=== PATIENT | male | born 1960 | race Caucasian/White ===

== ENCOUNTER 2019-01-20 09:35 | Inpatient (IN) | payer OTHER ==
[~2019-01-20 09:35] MED LIST: Acetaminophen 325 MG Tab PO SCH; EPINEPHrine 1 MG/ML SDV ONE; Lactated Ringers 1,000 ML IV SCH; Lidocaine 1%/Sod Bicarbonate in NS 8.4% 1 ML Syringe IDERM PRN; Pregabalin 25 MG Cap PO SCH; Ropivacaine 0.5% 5 MG/ML 30 ML SDV ONE; Sodium Chloride 0.9% 10 ML Syringe FLUSH PRN; oxyCODONE ER 10 MG TAB.ER PO SCH
--- NOTE | 2019-01-20 10:50 | PCM.PREANE ---
Preanesthetic Assessment - Anesthesia/Transfusion/Family Hx Anesthesia History: Prior Anesthesia Without Reaction Family History of Anesthesia Reaction: No Transfusion History: No Prior Transfusion(s) - Review of Systems General: No Symptoms Pulmonary: No Symptoms Cardiovascular: No Symptoms Gastrointestinal: No Symptoms Neurological: Numbness (somtimes in arms) Other: Reports: None - Physical Assessment NPO Status Date: 01/19/19 NPO Status Time: 19:00 Pulse: 88 O2 Sat by Pulse Oximetry: 96 Respiratory Rate: 16 Blood Pressure: 141/91 Temperature: 36.4 C Vital Signs: Last Vital Signs Temp 36.4 C 01/20/19 09:45 Pulse 88 01/20/19 09:45 Resp 16 01/20/19 09:45 BP 141/91 H 01/20/19 09:45 Pulse Ox 96 01/20/19 09:45 Height: 1.78 m Weight: 94.801 kg ASA Class: 2 Mental Status: Alert & Oriented x3 Airway Class: Mallampati = 1 Dentition: Reports: [place](s), [place] Thyro-Mental Finger Breadths: 3 Mouth Opening Finger Breadths: 3 ROM/Head Extension: Full Lungs: Clear to Auscultation, Normal Respiratory Effort Cardiovascular: Regular Rate, Regular Rhythm - Lab Values: on chart - Imaging/EKG Impressions: on chart NSR - Allergies Allergies/Adverse Reactions: Allergies Allergy/AdvReac Type Severity Reaction Status Date / Time No Known Allergies Allergy Verified 01/19/19 10:54 - Blood Blood Available: No Product(s) Available: None - Acknowledgements Anesthesia Type Planned: Spinal, Regional Block (Femoral block at adductor canal for post-op pain control) Pt an Appropriate Candidate for the Planned Anesthesia: Yes Alternatives and Risks of Anesthesia Discussed w Pt/Guardian: Yes Pt/Guardian Understands and Agrees with Anesthesia Plan: Yes PreAnesthesia Questionnaire HEENT History: Reports: Hard of Hearing, Other (See Below) Other HEENT History: hearing loss, tinnitis Cardiovascular History: Reports: Hypertension Respiratory History: Reports: None Gastrointestinal History: Reports: GERD Genitourinary History: Reports: BPH, Other (See Below) Other Genitourinary History: erectile dysfunction [employer] History: Reports: None Musculoskeletal History: Reports: Back Pain, Chronic, Osteoarthritis Neurological History: Reports: Other (See Below) Other Neuro History: essential tremor, cerviclagia Psychiatric History: Reports: None Endocrine/Metabolic History: Reports: None Hematologic History: Reports: None Immunologic History: Reports: None Oncologic (Cancer) History: Reports: None Dermatologic History: Reports: None - Past Surgical History Cardiovascular Surgical History: Reports: None Respiratory Surgical History: Reports: None GI Surgical History: Reports: Colonoscopy Female Surgical History: Reports: None Male Surgical History: Reports: None Endocrine Surgical History: Reports: None Neurological Surgical History: Reports: None Musculoskeletal Surgical History: Reports: Arthroscopic Knee, Knee Replacement, Other (See Below) Other Musculoskeletal Surgeries/Procedures:: left total knee, right ankle fusion , right wrist surgery, right knee arthroscopy Dermatological Surgical History: Reports: None - SUBSTANCE USE Smoking Status *Q: Never Smoker Tobacco Use Within Last Twelve Months: Snuff/Dip Second Hand Smoke Exposure: No Days Per Week of Alcohol Use: 3 Number of Drinks Per Day: 1 Total Drinks Per Week: 3 Recreational Drug Use History: No - HOME MEDS Home Medications: Home Meds Baclofen 10 mg PO ASDIRECTED PRN 01/20/19 [History] Chlorthalidone 25 mg PO DAILY 01/20/19 [History] atorvaSTATin [Lipitor] 10 mg PO DAILY 01/20/19 [History] - CURRENT (IN HOUSE) MEDS Current Meds: Current Medications Acetaminophen (Tylenol) 975 mg PO ONETIME MARCUS Stop: 01/20/19 14:00 Last Admin: 01/20/19 09:54 Dose: 975 mg Lactated Ringer's (Ringers, Lactated) 1,000 mls @ 125 mls/hr IV ASDIRECTED MARCUS Stop: 01/20/19 23:00 Last Admin: 01/20/19 10:05 Dose: 125 mls/hr Lidocaine/Sodium Bicarbonate (Buffered Lidocaine 1% In Ns 8.4%) 0.25 ml IDERM ONETIME PRN PRN Reason: Prior to IV Start Stop: 01/20/19 18:00 Last Admin: 01/20/19 10:05 Dose: 0.25 ml Oxycodone HCl (Oxycontin) 10 mg PO ONETIME MARCUS Stop: 01/20/19 14:00 Last Admin: 01/20/19 09:54 Dose: 10 mg Pregabalin (Lyrica) 50 mg PO ONETIME MARCUS Stop: 01/20/19 14:00 Last Admin: 01/20/19 09:54 Dose: 50 mg Sodium Chloride (Saline Flush) 10 ml FLUSH ASDIRECTED PRN PRN Reason: Keep Vein Open Stop: 01/20/19 18:00 Discontinued Medications Morphine Sulfate 8 mg/Epinephrine HCl 0.3 mg/Cefuroxime Sodium 750 mg/Ketorolac Tromethamine 30 mg/Sodium Chloride 27.9 ml 0 mg .XX ONETIME ONE Stop: 01/20/19 09:01 Epinephrine HCl (Adrenalin) Confirm Administered Dose 1 mg .ROUTE .STK-MED ONE Stop: 01/20/19 08:58 Ropivacaine (Naropin 0.5%) Confirm Administered Dose 30 ml .ROUTE .STK-MED ONE Stop: 01/20/19 08:58
[2019-01-20] MEDS ORDERED: Midazolam 1 MG/ML 2 ML SDV ONE (12:03)
[2019-01-20] MEDS ORDERED: Bupivacaine 0.75% 30 ML SDV ONE (12:04)
[2019-01-20] MEDS ORDERED: Ondansetron 4 MG/2 ML SDV ONE (12:31)
[2019-01-20] MEDS ORDERED: Naloxone 0.4 MG/ML SDV IVPUSH PRN (12:33)
[2019-01-20] MEDS ORDERED: Cyclobenzaprine 10 MG Tab PO PRN (12:33)
[2019-01-20] MEDS ORDERED: Ondansetron 4 MG/2 ML SDV IVPUSH PRN ×2 (12:33→14:39)
[2019-01-20] MEDS ORDERED: Magnesium Hydroxide 400 MG/5 ML Susp 30 ML Cup PO PRN (12:33)
[2019-01-20] MEDS ORDERED: Sennosides 8.6 MG Tab PO PRN (12:33)
[2019-01-20] MEDS ORDERED: Morphine 2 MG/ML Syringe IVPUSH PRN (12:33)
[2019-01-20] MEDS ORDERED: Bisacodyl 5 MG Tab PO PRN (12:33)
[2019-01-20] MEDS ORDERED: Propofol 200 MG/20 ML SDV ONE (12:35)
[2019-01-20] MEDS ORDERED: Lidocaine 1% PF 2 ML SDV ONE (12:37)
[2019-01-20] MEDS ORDERED: ceFAZolin 1 GM Vial ONE (12:52)
[2019-01-20] MEDS ORDERED: Lactated Ringers 1,000 ML ONE (13:07)
[2019-01-20] MEDS: Bupivacaine 0.25% 30 ML SDV ONE ×2 (13:08→13:31)
[2019-01-20] MEDS: ceFAZolin 1 GM Vial ONE ×2 (13:08→13:23)
[2019-01-20] MEDS: Iodine/Sodium Iodide 2% Tincture 30 ML Bottle ONE ×2 (13:09→13:21)
[2019-01-20] MEDS: Morphine 8 MG, EPINEPHrine 0.3 MG, Cefuroxime 750 MG, Ketorolac 30 MG, Sodium Chloride ... ONE ×10 (13:10→13:30)
[2019-01-20] MEDS: Vancomycin 1 GM SDV ONE ×2 (13:11→13:33)
[2019-01-20] MEDS ORDERED: ePHEDrine/Normal Saline 25 MG/5 ML Syringe ONE (13:31)
--- NOTE | 2019-01-20 14:33 | PCM.SN ---
- Free Text/Narrative Note: Right selective femoral nerve block at the adductor canal for post-procedure pain control Time Out: 1409 Start: 141 End: 1422 Chart reviewed. Consent signed. Questions answered. Appropriate monitors applied. Time out performed. Right mid-shaft femur evaluated with ultrasound. Scanning medially femur, I was able to identify the femoral artery in the adductor canal. The saphenous nerve was lateral to the artery. The skin was prepped lateral to the ultrasound probe with chlorahexadine. The 21ga 4 insulated block needle was inserted under direct ultrasound guidance into the adductor canal. 25mL of 0.5% ropivacaine with 1:200,000 epinephrine was injected cirmcumferentially about the nerve with intermittent negative aspiration every 5mL. Patient tolerated the procedure well. See pictures on progress note and vital signs on nurses notes. Block completed postoperatively. Rich Conklin CRNA
--- NOTE | 2019-01-20 14:38 | PCM.POSTAN ---
POST ANESTHESIA ASSESSMENT - MENTAL STATUS Mental Status: Alert - VITAL SIGNS Pulse Rate: 63 SaO2: 97 Resp Rate: 16 Blood Pressure: 106/81 Temperature: 36.3 C - RESPIRATORY Respiratory Status: Respiratory Rate WNL, Airway Patent, O2 Saturation Stable - CARDIOVASCULAR CV Status: Pulse Rate WNL, Blood Pressure Stable - GASTROINTESTINAL GI Status: No Symptoms - POST OP HYDRATION Hydration Status: Adequate & Stable
[2019-01-20] MEDS ORDERED: fentaNYL 100 MCG/2 ML SDV IVPUSH PRN (14:39)
--- NOTE | 2019-01-20 14:52 | CR ---
Right knee: AP and lateral views of the right knee were obtained. Comparison: No previous knee exam. Knee prosthesis is seen. Components are aligned. Underlying bony structures are intact. Vascular calcification is seen. Soft tissue air is noted from the surgical procedure. Impression: 1. Satisfactory postoperative radiographic appearance of recently placed right knee prosthesis. 2. Incidental vascular calcification. Diagnostic code #2
[2019-01-20] MEDS: Ketorolac 15 MG/ML SDV IVPUSH PRN ×2 (17:23→23:48)
[2019-01-20] MEDS: Acetaminophen/oxyCODONE 325-5 MG Tab PO PRN ×3 (17:23→22:04)
[2019-01-20] MEDS: ceFAZolin 2 GM in Premix Bag 1 BAG IV SCH (18:09)
--- NOTE | 2019-01-20 19:17 | PCM.CONSN ---
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 S/P Left knee arthroplasty, POD 0. The Hospitalist service has been asked to monitor his medications. Functional Status: Reports: Pain Controlled, Tolerating Diet, Urinating - Review of Systems General: Reports: No Symptoms HEENT: Reports: No Symptoms Pulmonary: Reports: No Symptoms Cardiovascular: Reports: No Symptoms Gastrointestinal: Reports: No Symptoms Genitourinary: Reports: No Symptoms Musculoskeletal: Reports: No Symptoms Skin: Reports: No Symptoms Neurological: Reports: No Symptoms Psychiatric: Reports: No Symptoms - Patient Data Vitals - Most Recent: Last Vital Signs Temp 35.8 C 01/20/19 15:10 Pulse 68 01/20/19 18:02 Resp 12 01/20/19 14:45 BP 126/82 01/20/19 18:02 Pulse Ox 100 01/20/19 18:02 Weight - Most Recent: 94.801 kg I&O - Last 24 Hours: Intake & Output 01/20/19 01/20/19 01/20/19 06:59 14:59 22:59 Intake Total 220 300 Balance 220 300 Lab Results Last 24 Hours: Laboratory Results - last 24 hr 01/20/19 Range/Units 10:06 APTT 29 (24-31) SECONDS Med Orders - Current: Current Medications Aspirin (Ecotrin) 325 mg PO BID MARCUS Bisacodyl (Dulcolax) 5 mg PO DAILY PRN PRN Reason: Constipation Cholecalciferol (Vitamin D3) 5,000 unit PO DAILY MARCUS Cyclobenzaprine HCl (Flexeril) 10 mg PO TID PRN PRN Reason: Spasms Docusate Sodium (Colace) 100 mg PO BID MARCUS Finasteride (Proscar) 5 mg PO DAILY MARCUS Flunisolide (Nasalide Nasal [place]) 0 ml AYAZ BID MARCUS Gabapentin (Neurontin) 1,200 mg PO DAILY MARCUS Cefazolin Sodium/Dextrose 2 gm (/ Premix) 50 mls @ 100 mls/hr IV Q8H MARCUS Stop: 01/21/19 11:29 Last Admin: 01/20/19 18:09 Dose: 100 mls/hr Ketorolac Tromethamine (Toradol) 15 mg IVPUSH Q6H PRN PRN Reason: Pain Last Admin: 01/20/19 17:23 Dose: 15 mg Loratadine (Claritin) 10 mg PO DAILY [facility] Magnesium Hydroxide (Milk Of Magnesia) 30 ml PO BID PRN PRN Reason: Constipation Morphine Sulfate (Morphine) 2 mg IVPUSH Q2H PRN PRN Reason: Breakthrough Pain Naloxone HCl (Narcan) 0.1 mg IVPUSH Q5M PRN PRN Reason: Oversedation Non-Formulary Medication (Chlorthalidone) 25 mg PO DAILY [facility] Non-Formulary Medication (Magnesium [Magnesium]) 250 mg PO DAILY [facility] Ondansetron HCl (Zofran) 4 mg IVPUSH Q6H PRN PRN Reason: Nausea/Vomiting Oxycodone/Acetaminophen (Percocet 325-5 Mg) 1 - 2 tab PO Q4H PRN PRN Reason: Pain Last Admin: 01/20/19 18:18 Dose: 1 tab Pantoprazole Sodium (Protonix) 40 mg PO BID [facility] Propranolol HCl (Inderal La) 60 mg PO DAILY [facility] Senna (Senna) 8.6 mg PO BID PRN PRN Reason: Constipation Simvastatin (Zocor) 10 mg PO DAILY [facility] Tamsulosin HCl (Flomax) 0.4 mg PO DAILY [facility] Discontinued Medications Acetaminophen (Tylenol) 975 mg PO ONETIME MARCUS Stop: 01/20/19 14:00 Last Admin: 01/20/19 09:54 Dose: 975 mg Bupivacaine HCl (Marcaine 0.25%) Confirm Administered Dose 30 ml .ROUTE .STK- MED ONE Stop: 01/20/19 11:28 Last Admin: 01/20/19 13:31 Dose: 30 ml Bupivacaine HCl (Sensorcaine-Mpf 0.75%) Confirm Administered Dose 30 ml .ROUTE .STK-MED ONE Stop: 01/20/19 12:05 Cefazolin Sodium (Ancef) Confirm Administered Dose 2 gm .ROUTE .STK-MED ONE Stop: 01/20/19 11:28 Last Admin: 01/20/19 13:23 Dose: 2 gm Cefazolin Sodium (Ancef) Confirm Administered Dose 2 gm .ROUTE .STK-MED ONE Stop: 01/20/19 12:53 Morphine Sulfate 8 mg/Epinephrine HCl 0.3 mg/Cefuroxime Sodium 750 mg/Ketorolac Tromethamine 30 mg/Sodium Chloride 27.9 ml 0 mg .XX ONETIME ONE Stop: 01/20/19 09:01 Last Admin: 01/20/19 13:30 Dose: 788.3 mg Ephedrine Sulfate (Ephedrine In Ns) Confirm Administered Dose 50 mg .ROUTE .STK- MED ONE Stop: 01/20/19 13:32 Epinephrine HCl (Adrenalin) Confirm Administered Dose 1 mg .ROUTE .STK-MED ONE Stop: 01/20/19 08:58 Famotidine (Pepcid) 20 mg PO Q12H MARCUS Fentanyl (Sublimaze) 50 mcg IVPUSH Q5M PRN PRN Reason: Pain Stop: 01/20/19 18:00 Lactated Ringer's (Ringers, Lactated) 1,000 mls @ 125 mls/hr IV ASDIRECTED MARCUS Stop: 01/20/19 23:00 Last Admin: 01/20/19 10:05 Dose: 125 mls/hr Lidocaine HCl (Xylocaine-Mpf 1%) Confirm Administered Dose 5 mls @ as directed .ROUTE .STK-MED ONE Stop: 01/20/19 12:05 Lidocaine HCl (Xylocaine-Mpf 1%) Confirm Administered Dose 5 mls @ as directed .ROUTE .STK-MED ONE Stop: 01/20/19 12:05 Lactated Ringer's (Ringers, Lactated) Confirm Administered Dose 1,000 mls @ as directed .ROUTE .STK-MED ONE Stop: 01/20/19 13:08 Iodine (Iodine 2% Mild Tincture) Confirm Administered Dose 30 ml .ROUTE .STK- MED ONE Stop: 01/20/19 11:28 Last Admin: 01/20/19 13:21 Dose: 18 ml Lidocaine HCl (Xylocaine-Mpf 1%) Confirm Administered Dose 6 ml .ROUTE .STK-MED ONE Stop: 01/20/19 12:38 Lidocaine/Sodium Bicarbonate (Buffered Lidocaine 1% In Ns 8.4%) 0.25 ml IDERM ONETIME PRN PRN Reason: Prior to IV Start Stop: 01/20/19 18:00 Last Admin: 01/20/19 10:05 Dose: 0.25 ml Midazolam HCl (Versed 1 Mg/Ml) Confirm Administered Dose 2 mg .ROUTE .STK-MED ONE Stop: 01/20/19 12:04 Ondansetron HCl (Zofran) Confirm Administered Dose 4 mg .ROUTE .STK-MED ONE Stop: 01/20/19 12:32 Ondansetron HCl (Zofran) 4 mg IVPUSH ONETIME PRN PRN Reason: Nausea/Vomiting Stop: 01/20/19 18:00 Oxycodone HCl (Oxycontin) 10 mg PO ONETIME MARCUS Stop: 01/20/19 14:00 Last Admin: 01/20/19 09:54 Dose: 10 mg Pregabalin (Lyrica) 50 mg PO ONETIME MARCUS Stop: 01/20/19 14:00 Last Admin: 01/20/19 09:54 Dose: 50 mg Propofol (Diprivan 20 Ml) Confirm Administered Dose 400 mg .ROUTE .STK-MED ONE Stop: 01/20/19 12:36 Ropivacaine (Naropin 0.5%) Confirm Administered Dose 30 ml .ROUTE .STK-MED ONE Stop: 01/20/19 08:58 Sodium Chloride (Saline Flush) 10 ml FLUSH ASDIRECTED PRN PRN Reason: Keep Vein Open Stop: 01/20/19 18:00 Tranexamic Acid (Cyklokapron) Confirm Administered Dose 1,000 mg .ROUTE .STK- MED ONE Stop: 01/20/19 11:27 Last Admin: 01/20/19 13:37 Dose: 1,000 mg Vancomycin HCl (Vancomycin) Confirm Administered Dose 1 gm .ROUTE .STK-MED ONE Stop: 01/20/19 11:27 Last Admin: 01/20/19 13:33 Dose: 1 gm - Exam Quality Assessment: Urine Catheter, DVT Prophylaxis General: Alert, Oriented, Cooperative, No Acute Distress HEENT: Pupils Equal, Pupils Reactive, EOMI Neck: Trachea Midline, No JVD Lungs: Normal Respiratory Effort Cardiovascular: Regular Rate, Regular Rhythm GI/Abdominal Exam: Normal Bowel Sounds, Soft, Non-Tender, No Organomegaly, No Distention (Male) Exam: Deferred Back Exam: Normal Inspection Extremities: Normal Inspection, Non-Tender, Normal Capillary Refill Skin: Warm Neurological: No New Focal Deficit Psy/Mental Status: Alert, Normal Affect, Normal Mood Consult PN Assessment/Plan POD#: 0 Procedures: Procedures MR-STAPH DNA AMP PROBE (12/25/18) (1) Hypertension SNOMED Code(s): 63009043 Code(s): I10 - ESSENTIAL (PRIMARY) HYPERTENSION Current Visit: Yes (2) BPH (benign prostatic hyperplasia) SNOMED Code(s): 553483179 Code(s): N40.0 - BENIGN PROSTATIC HYPERPLASIA WITHOUT LOWER URINRY TRACT SYMP Current Visit: Yes (3) GERD (gastroesophageal reflux disease) SNOMED Code(s): 410865992 Code(s): K21.9 - GASTRO-ESOPHAGEAL REFLUX DISEASE WITHOUT ESOPHAGITIS Current Visit: Yes (4) Osteoarthritis SNOMED Code(s): 916890380 Code(s): M19.90 - UNSPECIFIED OSTEOARTHRITIS, UNSPECIFIED SITE Current Visit: Yes Problem List Initiated/Reviewed/Updated: Yes Plan: Impression/Plan: History of OA S/P right total knee arthroplasty History of Left totall knee replacement Consult PT/OT Pain mgt DVT prophylaxis Home meds Daily Labs
[2019-01-20] MEDS ORDERED: Famotidine 20 MG Tab PO SCH (21:00)
[2019-01-20] MEDS: Docusate Sodium 100 MG Cap PO SCH (21:13)
[2019-01-20] MEDS: Pantoprazole 40 MG Tab.CR PO SCH (21:14)
[2019-01-21] MEDS: ceFAZolin 2 GM in Premix Bag 1 BAG IV SCH ×2 (04:00→10:43)
[2019-01-21] MEDS: Acetaminophen/oxyCODONE 325-5 MG Tab PO PRN ×3 (04:08→14:39)
--- NOTE | 2019-01-21 07:06 | PCM.CONSN ---
- General Info Date of Service: 01/21/19 Subjective Update: In to see Isma. He reports his pain is quite severe however he has just finished working with OT and reportedly did well. No other nursing or patient concerns. Functional Status: Reports: Pain Controlled, Tolerating Diet, Ambulating, Urinating, Incentive Spirometry. Denies: New Symptoms - Review of Systems General: Reports: No Symptoms. Denies: Fever, Weakness, Malaise, Chills HEENT: Reports: No Symptoms. Denies: Headaches, Sore Throat Pulmonary: Reports: No Symptoms. Denies: Shortness of Breath, Pleuritic Chest Pain, Cough, Sputum, Wheezing Cardiovascular: Reports: No Symptoms. Denies: Chest Pain, Palpitations, Dyspnea on Exertion, Edema Gastrointestinal: Reports: No Symptoms. Denies: Abdominal Pain, Constipation, Diarrhea, Nausea, Vomiting Genitourinary: Reports: No Symptoms. Denies: Pain Musculoskeletal: Reports: Leg Pain Skin: Reports: No Symptoms Neurological: Reports: No Symptoms. Denies: Confusion Psychiatric: Reports: No Symptoms - Patient Data Vitals - Most Recent: Last Vital Signs Temp 99.3 F 01/21/19 03:58 Pulse 88 01/21/19 03:58 Resp 17 01/21/19 03:58 BP 122/74 01/21/19 03:58 Pulse Ox 97 01/21/19 03:58 Weight - Most Recent: 217 lb 4.8 oz I&O - Last 24 Hours: Intake & Output 01/20/19 01/21/19 01/21/19 22:59 06:59 14:59 Intake Total 300 1400 Output Total 550 Balance 300 850 Lab Results Last 24 Hours: Laboratory Results - last 24 hr 01/20/19 01/21/19 01/21/19 Range/Units 10:06 04:18 04:18 WBC 9.35 H (4.23-9.07) K/mm3 RBC 4.18 L (4.63-6.08) M/mm3 Hgb 13.7 (13.7-17.5) gm/L Hct 39.2 L (40.1-51.0) % MCV 93.8 H (79.0-92.2) fl MCH 32.8 H (25.7-32.2) pg MCHC 34.9 (32.2-35.5) g/dl RDW Std Deviation 43.6 (35.1-43.9) fL Plt Count 274 (163-337) K/mm3 MPV 8.7 L (9.4-12.3) fl APTT 29 (24-31) SECONDS Sodium 133 L (136-145) mEq/L Potassium 2.7 L (3.5-5.1) mEq/L Chloride 96 L (98-107) mEq/L Carbon Dioxide 29 (21-32) mEq/L Anion Gap 10.7 (5-15) BUN 15 (7-18) mg/dL Creatinine 0.8 (0.7-1.3) mg/dL Est Cr Clr Drug Dosing 101.39 mL/min Estimated GFR (MDRD) > 60 (>60) mL/min BUN/Creatinine Ratio 18.8 H (14-18) Glucose 94 (74-106) mg/dL Calcium 8.8 (8.5-10.1) mg/dL Magnesium (1.8-2.4) mg/dl Total Bilirubin 0.8 (0.2-1.0) mg/dL AST 16 (15-37) U/L ALT 20 (16-63) U/L Alkaline Phosphatase 65 (46-116) U/L C-Reactive Protein (<1.0) mg/dL Total Protein 6.3 L (6.4-8.2) g/dl Albumin 3.2 L (3.4-5.0) g/dl Globulin 3.1 gm/dL Albumin/Globulin Ratio 1.0 (1-2) 01/21/19 Range/Units 04:18 WBC (4.23-9.07) K/mm3 RBC (4.63-6.08) M/mm3 Hgb (13.7-17.5) gm/L Hct (40.1-51.0) % MCV (79.0-92.2) fl MCH (25.7-32.2) pg MCHC (32.2-35.5) g/dl RDW Std Deviation (35.1-43.9) fL Plt Count (163-337) K/mm3 MPV (9.4-12.3) fl APTT (24-31) SECONDS Sodium (136-145) mEq/L Potassium (3.5-5.1) mEq/L Chloride (98-107) mEq/L Carbon Dioxide (21-32) mEq/L Anion Gap (5-15) BUN (7-18) mg/dL Creatinine (0.7-1.3) mg/dL Est Cr Clr Drug Dosing mL/min Estimated GFR (MDRD) (>60) mL/min BUN/Creatinine Ratio (14-18) Glucose (74-106) mg/dL Calcium (8.5-10.1) mg/dL Magnesium 1.5 L (1.8-2.4) mg/dl Total Bilirubin (0.2-1.0) mg/dL AST (15-37) U/L ALT (16-63) U/L Alkaline Phosphatase (46-116) U/L C-Reactive Protein 3.7 H* (<1.0) mg/dL Total Protein (6.4-8.2) g/dl Albumin (3.4-5.0) g/dl Globulin gm/dL Albumin/Globulin Ratio (1-2) Med Orders - Current: Current Medications Aspirin (Ecotrin) 325 mg PO BID [facility] Bisacodyl (Dulcolax) 5 mg PO DAILY PRN PRN Reason: Constipation Cholecalciferol (Vitamin D3) 5,000 unit PO DAILY [facility] Cyclobenzaprine HCl (Flexeril) 10 mg PO TID PRN PRN Reason: Spasms Docusate Sodium (Colace) 100 mg PO BID [facility] Last Admin: 01/20/19 21:13 Dose: 100 mg Finasteride (Proscar) 5 mg PO DAILY [facility] Flunisolide (Nasalide Nasal [place]) 0 ml AYAZ BID [facility] Last Admin: 01/20/19 21:12 Dose: 1 spr Gabapentin (Neurontin) 1,200 mg PO DAILY [facility] Cefazolin Sodium/Dextrose 2 gm (/ Premix) 50 mls @ 100 mls/hr IV Q8H [facility] Stop: 01/21/19 11:29 Last Admin: 01/21/19 04:00 Dose: 100 mls/hr Ketorolac Tromethamine (Toradol) 15 mg IVPUSH Q6H PRN PRN Reason: Pain Last Admin: 01/20/19 23:48 Dose: 15 mg Loratadine (Claritin) 10 mg PO DAILY [facility] Magnesium Hydroxide (Milk Of Magnesia) 30 ml PO BID PRN PRN Reason: Constipation Morphine Sulfate (Morphine) 2 mg IVPUSH Q2H PRN PRN Reason: Breakthrough Pain Naloxone HCl (Narcan) 0.1 mg IVPUSH Q5M PRN PRN Reason: Oversedation Non-Formulary Medication (Chlorthalidone) 25 mg PO DAILY [facility] Non-Formulary Medication (Magnesium [Magnesium]) 250 mg PO DAILY [facility] Ondansetron HCl (Zofran) 4 mg IVPUSH Q6H PRN PRN Reason: Nausea/Vomiting Oxycodone/Acetaminophen (Percocet 325-5 Mg) 1 - 2 tab PO Q4H PRN PRN Reason: Pain Last Admin: 01/21/19 04:08 Dose: 2 tab Pantoprazole Sodium (Protonix) 40 mg PO BID [facility] Last Admin: 01/20/19 21:14 Dose: 40 mg Propranolol HCl (Inderal La) 60 mg PO DAILY [facility] Senna (Senna) 8.6 mg PO BID PRN PRN Reason: Constipation Simvastatin (Zocor) 10 mg PO DAILY [facility] Tamsulosin HCl (Flomax) 0.4 mg PO DAILY [facility] Discontinued Medications Acetaminophen (Tylenol) 975 mg PO ONETIME [facility] Stop: 01/20/19 14:00 Last Admin: 01/20/19 09:54 Dose: 975 mg Bupivacaine HCl (Marcaine 0.25%) Confirm Administered Dose 30 ml .ROUTE .STK- MED ONE Stop: 01/20/19 11:28 Last Admin: 01/20/19 13:31 Dose: 30 ml Bupivacaine HCl (Sensorcaine-Mpf 0.75%) Confirm Administered Dose 30 ml .ROUTE .STK-MED ONE Stop: 01/20/19 12:05 Cefazolin Sodium (Ancef) Confirm Administered Dose 2 gm .ROUTE .STK-MED ONE Stop: 01/20/19 11:28 Last Admin: 01/20/19 13:23 Dose: 2 gm Cefazolin Sodium (Ancef) Confirm Administered Dose 2 gm .ROUTE .STK-MED ONE Stop: 01/20/19 12:53 Morphine Sulfate 8 mg/Epinephrine HCl 0.3 mg/Cefuroxime Sodium 750 mg/Ketorolac Tromethamine 30 mg/Sodium Chloride 27.9 ml 0 mg .XX ONETIME ONE Stop: 01/20/19 09:01 Last Admin: 01/20/19 13:30 Dose: 788.3 mg Ephedrine Sulfate (Ephedrine In Ns) Confirm Administered Dose 50 mg .ROUTE .STK- MED ONE Stop: 01/20/19 13:32 Epinephrine HCl (Adrenalin) Confirm Administered Dose 1 mg .ROUTE .STK-MED ONE Stop: 01/20/19 08:58 Famotidine (Pepcid) 20 mg PO Q12H [facility] Fentanyl (Sublimaze) 50 mcg IVPUSH Q5M PRN PRN Reason: Pain Stop: 01/20/19 18:00 Lactated Ringer's (Ringers, Lactated) 1,000 mls @ 125 mls/hr IV ASDIRECTED [facility] Stop: 01/20/19 23:00 Last Admin: 01/20/19 10:05 Dose: 125 mls/hr Lidocaine HCl (Xylocaine-Mpf 1%) Confirm Administered Dose 5 mls @ as directed .ROUTE .STK-MED ONE Stop: 01/20/19 12:05 Lidocaine HCl (Xylocaine-Mpf 1%) Confirm Administered Dose 5 mls @ as directed .ROUTE .STK-MED ONE Stop: 01/20/19 12:05 Lactated Ringer's (Ringers, Lactated) Confirm Administered Dose 1,000 mls @ as directed .ROUTE .STK-MED ONE Stop: 01/20/19 13:08 Iodine (Iodine 2% Mild Tincture) Confirm Administered Dose 30 ml .ROUTE .STK- MED ONE Stop: 01/20/19 11:28 Last Admin: 01/20/19 13:21 Dose: 18 ml Lidocaine HCl (Xylocaine-Mpf 1%) Confirm Administered Dose 6 ml .ROUTE .STK-MED ONE Stop: 01/20/19 12:38 Lidocaine/Sodium Bicarbonate (Buffered Lidocaine 1% In Ns 8.4%) 0.25 ml IDERM ONETIME PRN PRN Reason: Prior to IV Start Stop: 01/20/19 18:00 Last Admin: 01/20/19 10:05 Dose: 0.25 ml Midazolam HCl (Versed 1 Mg/Ml) Confirm Administered Dose 2 mg .ROUTE .STK-MED ONE Stop: 01/20/19 12:04 Ondansetron HCl (Zofran) Confirm Administered Dose 4 mg .ROUTE .STK-MED ONE Stop: 01/20/19 12:32 Ondansetron HCl (Zofran) 4 mg IVPUSH ONETIME PRN PRN Reason: Nausea/Vomiting Stop: 01/20/19 18:00 Oxycodone HCl (Oxycontin) 10 mg PO ONETIME [facility] Stop: 01/20/19 14:00 Last Admin: 01/20/19 09:54 Dose: 10 mg Pregabalin (Lyrica) 50 mg PO ONETIME [facility] Stop: 01/20/19 14:00 Last Admin: 01/20/19 09:54 Dose: 50 mg Propofol (Diprivan 20 Ml) Confirm Administered Dose 400 mg .ROUTE .STK-MED ONE Stop: 01/20/19 12:36 Ropivacaine (Naropin 0.5%) Confirm Administered Dose 30 ml .ROUTE .STK-MED ONE Stop: 01/20/19 08:58 Sodium Chloride (Saline Flush) 10 ml FLUSH ASDIRECTED PRN PRN Reason: Keep Vein Open Stop: 01/20/19 18:00 Tranexamic Acid (Cyklokapron) Confirm Administered Dose 1,000 mg .ROUTE .STK- MED ONE Stop: 01/20/19 11:27 Last Admin: 01/20/19 13:37 Dose: 1,000 mg Vancomycin HCl (Vancomycin) Confirm Administered Dose 1 gm .ROUTE .STK-MED ONE Stop: 01/20/19 11:27 Last Admin: 01/20/19 13:33 Dose: 1 gm - Exam Quality Assessment: DVT Prophylaxis General: Alert, Oriented, Cooperative, No Acute Distress HEENT: Pupils Equal, Pupils Reactive, EOMI, Mucous Membr. Moist/[place] Neck: Supple, Trachea Midline, No JVD Lungs: Clear to Auscultation, Normal Respiratory Effort Cardiovascular: Regular Rate, Regular Rhythm GI/Abdominal Exam: Normal Bowel Sounds, Soft, Non-Tender, No Organomegaly, No Distention (Male) Exam: Deferred Back Exam: Normal Inspection, Full Range of Motion Extremities: No Pedal Edema, Normal Capillary Refill, Leg Pain, Limited Range of Motion, Other (Bandage in place on right knee. Cooling pack in place. ) Peripheral Pulses: 2+: Radial (L), Radial (R), Dorsalis Pedis (L), Dorsalis Pedis (R) Skin: Warm, Dry, Intact Wound/Incisions: Dressing Dry and Intact, No Drainage Neurological: No New Focal Deficit Psy/Mental Status: Alert, Normal Affect, Normal Mood Consult PN Assessment/Plan POD#: 1 Procedures: Procedures MR-STAPH DNA AMP PROBE (12/25/18) (1) S/P total knee arthroplasty SNOMED Code(s): 3684893890389, 955174368, 1504867720195 Code(s): Z96.659 - PRESENCE OF UNSPECIFIED ARTIFICIAL KNEE JOINT Priority: High Current Visit: Yes Qualifiers: Laterality: right Qualified Code(s): Z96.651 - Presence of right artificial knee joint (2) BPH (benign prostatic hyperplasia) SNOMED Code(s): 699781602 Code(s): N40.0 - BENIGN PROSTATIC HYPERPLASIA WITHOUT LOWER URINRY TRACT SYMP Priority: Low Current Visit: No Qualifiers: Lower urinary tract symptom presence: unspecified whether lower urinary tract symptoms present Qualified Code(s): N40.0 - Benign prostatic hyperplasia without lower urinary tract symptoms (3) GERD (gastroesophageal reflux disease) SNOMED Code(s): 555894683 Code(s): K21.9 - GASTRO-ESOPHAGEAL REFLUX DISEASE WITHOUT ESOPHAGITIS Priority: Low Current Visit: No Qualifiers: Esophagitis presence: esophagitis presence not specified Qualified Code(s) : K21.9 - Gastro-esophageal reflux disease without esophagitis (4) Hypertension SNOMED Code(s): 26724233 Code(s): I10 - ESSENTIAL (PRIMARY) HYPERTENSION Priority: Medium Current Visit: No Qualifiers: Hypertension type: unspecified Qualified Code(s): I10 - Essential (primary ) hypertension (5) Osteoarthritis SNOMED Code(s): 734976602 Code(s): M19.90 - UNSPECIFIED OSTEOARTHRITIS, UNSPECIFIED SITE Priority: High Current Visit: Yes Qualifiers: Osteoarthritis location: knee Osteoarthritis type: primary Laterality: right Qualified Code(s): M17.11 - Unilateral primary osteoarthritis, right knee (6) Hypokalemia SNOMED Code(s): 12708375 Code(s): E87.6 - HYPOKALEMIA Priority: High Current Visit: Yes (7) Hypomagnesemia SNOMED Code(s): 225453026 Code(s): E83.42 - HYPOMAGNESEMIA Priority: High Current Visit: Yes Problem List Initiated/Reviewed/Updated: Yes Plan: I/P: Acute: S/P right total knee arthroplasty - post-operative day 1 -DVT prophylaxis and pain management per primary care team -PT/OT -IS/RT -Monitor oxygen saturation -Titrate oxygen as needed -Vital signs stable -Monitor labs -Pre-operative Hgb was 18.9; Now 13.7 -Pre-operative GFR was >60; Now >60 Osteoarthritis of right knee -Pain management per primary care team Hypokalemia -Potassium 2.7; Re-check 2.8 -Supplemented Hypomagnesemia -Magnesium 1.5 -Supplemented Chronic: GERD BPH Hypertension Plan: CM for discharge planning GI prophylaxis Home medications as indicated Other orders as listed above Routine AM labs He is a full code. His PCP is Dr. Bebeto Reed From a hospitalist standpoint Isma is doing well. He has been up ambulating and working with PT/OT. He has urinated and is off of oxygen. Vital signs remain stable. His potassium and magnesium returned low today. Repeat potassium confirmed hypokalemia. Will provide supplementation for discharge. Will need to follow-up with PCP for repeat lab draw. Recommending BMP and magnesium at that time. Pain is present but is controlled. He will be cleared for discharge pending primary team and PT/OT agreement. He should follow-up with his PCP within 2-5 days regarding low magnesium and potassium. Thank you for allowing us to participate in the care of this patient!!
--- NOTE | 2019-01-21 08:10 | PCM.SURGPN ---
- General Info Date of Service: 01/21/19 POD#: 1 Functional Status: Reports: Tolerating Diet, Ambulating, Urinating, Incentive Spirometry - Patient Data Vitals - Most Recent: Last Vital Signs Temp 99.3 F 01/21/19 03:58 Pulse 88 01/21/19 03:58 Resp 17 01/21/19 03:58 BP 122/74 01/21/19 03:58 Pulse Ox 97 01/21/19 03:58 Weight - Most Recent: 217 lb 4.8 oz I&O - Last 24 Hours: Intake & Output 01/20/19 01/21/19 01/21/19 22:59 06:59 14:59 Intake Total 300 1400 Output Total 550 Balance 300 850 Lab Results Last 24 Hrs: Laboratory Results - last 24 hr 01/20/19 01/21/19 01/21/19 Range/Units 10:06 04:18 04:18 WBC 9.35 H (4.23-9.07) K/mm3 RBC 4.18 L (4.63-6.08) M/mm3 Hgb 13.7 (13.7-17.5) gm/L Hct 39.2 L (40.1-51.0) % MCV 93.8 H (79.0-92.2) fl MCH 32.8 H (25.7-32.2) pg MCHC 34.9 (32.2-35.5) g/dl RDW Std Deviation 43.6 (35.1-43.9) fL Plt Count 274 (163-337) K/mm3 MPV 8.7 L (9.4-12.3) fl APTT 29 (24-31) SECONDS Sodium 133 L (136-145) mEq/L Potassium 2.7 L (3.5-5.1) mEq/L Chloride 96 L (98-107) mEq/L Carbon Dioxide 29 (21-32) mEq/L Anion Gap 10.7 (5-15) BUN 15 (7-18) mg/dL Creatinine 0.8 (0.7-1.3) mg/dL Est Cr Clr Drug Dosing 101.39 mL/min Estimated GFR (MDRD) > 60 (>60) mL/min BUN/Creatinine Ratio 18.8 H (14-18) Glucose 94 (74-106) mg/dL Calcium 8.8 (8.5-10.1) mg/dL Magnesium (1.8-2.4) mg/dl Total Bilirubin 0.8 (0.2-1.0) mg/dL AST 16 (15-37) U/L ALT 20 (16-63) U/L Alkaline Phosphatase 65 (46-116) U/L C-Reactive Protein (<1.0) mg/dL Total Protein 6.3 L (6.4-8.2) g/dl Albumin 3.2 L (3.4-5.0) g/dl Globulin 3.1 gm/dL Albumin/Globulin Ratio 1.0 (1-2) 01/21/19 Range/Units 04:18 WBC (4.23-9.07) K/mm3 RBC (4.63-6.08) M/mm3 Hgb (13.7-17.5) gm/L Hct (40.1-51.0) % MCV (79.0-92.2) fl MCH (25.7-32.2) pg MCHC (32.2-35.5) g/dl RDW Std Deviation (35.1-43.9) fL Plt Count (163-337) K/mm3 MPV (9.4-12.3) fl APTT (24-31) SECONDS Sodium (136-145) mEq/L Potassium (3.5-5.1) mEq/L Chloride (98-107) mEq/L Carbon Dioxide (21-32) mEq/L Anion Gap (5-15) BUN (7-18) mg/dL Creatinine (0.7-1.3) mg/dL Est Cr Clr Drug Dosing mL/min Estimated GFR (MDRD) (>60) mL/min BUN/Creatinine Ratio (14-18) Glucose (74-106) mg/dL Calcium (8.5-10.1) mg/dL Magnesium 1.5 L (1.8-2.4) mg/dl Total Bilirubin (0.2-1.0) mg/dL AST (15-37) U/L ALT (16-63) U/L Alkaline Phosphatase (46-116) U/L C-Reactive Protein 3.7 H* (<1.0) mg/dL Total Protein (6.4-8.2) g/dl Albumin (3.4-5.0) g/dl Globulin gm/dL Albumin/Globulin Ratio (1-2) Med Orders - Current: Current Medications Aspirin (Ecotrin) 325 mg PO BID [facility] Bisacodyl (Dulcolax) 5 mg PO DAILY PRN PRN Reason: Constipation Cholecalciferol (Vitamin D3) 5,000 unit PO DAILY [facility] Cyclobenzaprine HCl (Flexeril) 10 mg PO TID PRN PRN Reason: Spasms Docusate Sodium (Colace) 100 mg PO BID [facility] Last Admin: 01/20/19 21:13 Dose: 100 mg Finasteride (Proscar) 5 mg PO DAILY [facility] Flunisolide (Nasalide Nasal [place]) 0 ml AYAZ BID [facility] Last Admin: 01/20/19 21:12 Dose: 1 spr Gabapentin (Neurontin) 1,200 mg PO DAILY [facility] Cefazolin Sodium/Dextrose 2 gm (/ Premix) 50 mls @ 100 mls/hr IV Q8H [facility] Stop: 01/21/19 11:29 Last Admin: 01/21/19 04:00 Dose: 100 mls/hr Ketorolac Tromethamine (Toradol) 15 mg IVPUSH Q6H PRN PRN Reason: Pain Last Admin: 01/20/19 23:48 Dose: 15 mg Loratadine (Claritin) 10 mg PO DAILY [facility] Magnesium Hydroxide (Milk Of Magnesia) 30 ml PO BID PRN PRN Reason: Constipation Magnesium Oxide (Magnesium Oxide) 400 mg PO DAILY [facility] Morphine Sulfate (Morphine) 2 mg IVPUSH Q2H PRN PRN Reason: Breakthrough Pain Naloxone HCl (Narcan) 0.1 mg IVPUSH Q5M PRN PRN Reason: Oversedation Ondansetron HCl (Zofran) 4 mg IVPUSH Q6H PRN PRN Reason: Nausea/Vomiting Oxycodone/Acetaminophen (Percocet 325-5 Mg) 1 - 2 tab PO Q4H PRN PRN Reason: Pain Last Admin: 01/21/19 04:08 Dose: 2 tab Pantoprazole Sodium (Protonix) 40 mg PO BID [facility] Last Admin: 01/20/19 21:14 Dose: 40 mg Chlorthalidone 25 Mg 0 each PO DAILY [facility] Propranolol HCl (Inderal La) 60 mg PO DAILY [facility] Senna (Senna) 8.6 mg PO BID PRN PRN Reason: Constipation Simvastatin (Zocor) 10 mg PO DAILY [facility] Tamsulosin HCl (Flomax) 0.4 mg PO DAILY [facility] Discontinued Medications Acetaminophen (Tylenol) 975 mg PO ONETIME [facility] Stop: 01/20/19 14:00 Last Admin: 01/20/19 09:54 Dose: 975 mg Bupivacaine HCl (Marcaine 0.25%) Confirm Administered Dose 30 ml .ROUTE .STK- MED ONE Stop: 01/20/19 11:28 Last Admin: 01/20/19 13:31 Dose: 30 ml Bupivacaine HCl (Sensorcaine-Mpf 0.75%) Confirm Administered Dose 30 ml .ROUTE .STK-MED ONE Stop: 01/20/19 12:05 Cefazolin Sodium (Ancef) Confirm Administered Dose 2 gm .ROUTE .STK-MED ONE Stop: 01/20/19 11:28 Last Admin: 01/20/19 13:23 Dose: 2 gm Cefazolin Sodium (Ancef) Confirm Administered Dose 2 gm .ROUTE .STK-MED ONE Stop: 01/20/19 12:53 Morphine Sulfate 8 mg/Epinephrine HCl 0.3 mg/Cefuroxime Sodium 750 mg/Ketorolac Tromethamine 30 mg/Sodium Chloride 27.9 ml 0 mg .XX ONETIME ONE Stop: 01/20/19 09:01 Last Admin: 01/20/19 13:30 Dose: 788.3 mg Ephedrine Sulfate (Ephedrine In Ns) Confirm Administered Dose 50 mg .ROUTE .STK- MED ONE Stop: 01/20/19 13:32 Epinephrine HCl (Adrenalin) Confirm Administered Dose 1 mg .ROUTE .STK-MED ONE Stop: 01/20/19 08:58 Famotidine (Pepcid) 20 mg PO Q12H [facility] Fentanyl (Sublimaze) 50 mcg IVPUSH Q5M PRN PRN Reason: Pain Stop: 01/20/19 18:00 Lactated Ringer's (Ringers, Lactated) 1,000 mls @ 125 mls/hr IV ASDIRECTED [facility] Stop: 01/20/19 23:00 Last Admin: 01/20/19 10:05 Dose: 125 mls/hr Lidocaine HCl (Xylocaine-Mpf 1%) Confirm Administered Dose 5 mls @ as directed .ROUTE .STK-MED ONE Stop: 01/20/19 12:05 Lidocaine HCl (Xylocaine-Mpf 1%) Confirm Administered Dose 5 mls @ as directed .ROUTE .STK-MED ONE Stop: 01/20/19 12:05 Lactated Ringer's (Ringers, Lactated) Confirm Administered Dose 1,000 mls @ as directed .ROUTE .STK-MED ONE Stop: 01/20/19 13:08 Iodine (Iodine 2% Mild Tincture) Confirm Administered Dose 30 ml .ROUTE .STK- MED ONE Stop: 01/20/19 11:28 Last Admin: 01/20/19 13:21 Dose: 18 ml Lidocaine HCl (Xylocaine-Mpf 1%) Confirm Administered Dose 6 ml .ROUTE .STK-MED ONE Stop: 01/20/19 12:38 Lidocaine/Sodium Bicarbonate (Buffered Lidocaine 1% In Ns 8.4%) 0.25 ml IDERM ONETIME PRN PRN Reason: Prior to IV Start Stop: 01/20/19 18:00 Last Admin: 01/20/19 10:05 Dose: 0.25 ml Midazolam HCl (Versed 1 Mg/Ml) Confirm Administered Dose 2 mg .ROUTE .STK-MED ONE Stop: 01/20/19 12:04 Ondansetron HCl (Zofran) Confirm Administered Dose 4 mg .ROUTE .STK-MED ONE Stop: 01/20/19 12:32 Ondansetron HCl (Zofran) 4 mg IVPUSH ONETIME PRN PRN Reason: Nausea/Vomiting Stop: 01/20/19 18:00 Oxycodone HCl (Oxycontin) 10 mg PO ONETIME [facility] Stop: 01/20/19 14:00 Last Admin: 01/20/19 09:54 Dose: 10 mg Pregabalin (Lyrica) 50 mg PO ONETIME [facility] Stop: 01/20/19 14:00 Last Admin: 01/20/19 09:54 Dose: 50 mg Propofol (Diprivan 20 Ml) Confirm Administered Dose 400 mg .ROUTE .STK-MED ONE Stop: 01/20/19 12:36 Ropivacaine (Naropin 0.5%) Confirm Administered Dose 30 ml .ROUTE .STK-MED ONE Stop: 01/20/19 08:58 Sodium Chloride (Saline Flush) 10 ml FLUSH ASDIRECTED PRN PRN Reason: Keep Vein Open Stop: 01/20/19 18:00 Tranexamic Acid (Cyklokapron) Confirm Administered Dose 1,000 mg .ROUTE .STK- MED ONE Stop: 01/20/19 11:27 Last Admin: 01/20/19 13:37 Dose: 1,000 mg Vancomycin HCl (Vancomycin) Confirm Administered Dose 1 gm .ROUTE .STK-MED ONE Stop: 01/20/19 11:27 Last Admin: 01/20/19 13:33 Dose: 1 gm - Exam Wound/Incisions: Dressing Dry and Intact General: Alert, Cooperative, No Acute Distress Lungs: Normal Respiratory Effort Extremities: Other (Delisa's negative for RLE. Pt was able to sense light touch at RLE.) - Problem List Review Problem List Initiated/Reviewed/Updated: Yes - My Orders Last 24 Hours: Active Orders 24 hr Category Date Time Status Patient Status [ADT] Routine ADT 01/20/19 12:33 Active Ambulate [RC] PER UNIT ROUTINE Care 01/20/19 12:33 Active Antiembolic Devices [RC] PER UNIT ROUTINE Care 01/20/19 12:34 Active May Shower [RC] ASDIRECTED Care 01/20/19 12:33 Active Notify Provider Consults [RC] ASDIRECTED Care 01/20/19 12:36 Active Notify Provider [RC] ASDIRECTED Care 01/20/19 14:39 Active Oxygen Therapy [RC] PRN Care 01/20/19 12:33 Active Pulse Oximetry [RC] ASDIRECTED Care 01/20/19 14:39 Active RT Incentive Spirometry [RC] Q1HWA Care 01/20/19 12:32 Active Ready for Discharge [RC] PER UNIT ROUTINE Care 01/21/19 08:07 Ordered Up to Chair [RC] ASDIRECTED Care 01/20/19 12:33 Active Consult to Physician [CONS] Routine Cons 01/20/19 12:33 Active OT Evaluation and Treatment [CONS] Routine Cons 01/20/19 12:32 Active PT Evaluation and Treatment [CONS] Routine Cons 01/20/19 12:32 Active Regular Diet [DIET] Diet 01/20/19 Dinner Active POTASSIUM,K [CHEM] Stat Lab 01/21/19 07:52 Received Acetaminophen/oxyCODONE [Percocet 325-5 MG] Med 01/20/19 12:33 Active 1 - 2 tab PO Q4H PRN Aspirin [Ecotrin] Med 01/21/19 09:00 Active 325 mg PO BID Bisacodyl [Dulcolax] Med 01/20/19 12:33 Active 5 mg PO DAILY PRN Cholecalciferol (Vitamin D3) [Vitamin D3] Med 01/21/19 09:00 Active 5,000 unit PO DAILY Cyclobenzaprine [Flexeril] Med 01/20/19 12:33 Active 10 mg PO TID PRN Docusate Sodium [Colace] Med 01/20/19 21:00 Active 100 mg PO BID Finasteride [Proscar] Med 01/21/19 09:00 Active 5 mg PO DAILY Flunisolide [Nasalide Nasal [place]] Med 01/20/19 21:00 Active 0 ml AYAZ BID Gabapentin [Neurontin] Med 01/21/19 09:00 Active 1,200 mg PO DAILY Ketorolac [Toradol] Med 01/20/19 12:33 Active 15 mg IVPUSH Q6H PRN Loratadine [Claritin] Med 01/21/19 09:00 Active 10 mg PO DAILY Magnesium Hydroxide [Milk of Magnesia] Med 01/20/19 12:33 Active 30 ml PO BID PRN Magnesium Oxide Med 01/21/19 09:00 Active 400 mg PO DAILY Morphine Med 01/20/19 12:33 Active 2 mg IVPUSH Q2H PRN Naloxone [Narcan] Med 01/20/19 12:33 Active 0.1 mg IVPUSH Q5M PRN Ondansetron [Zofran] Med 01/20/19 12:33 Active 4 mg IVPUSH Q6H PRN Pantoprazole [ProTONIX] Med 01/20/19 21:00 Active 40 mg PO BID Patient's Own Medication [Ptom] Med 01/21/19 09:00 Active 0 each PO DAILY Propranolol [Inderal LA] Med 01/21/19 09:00 Active 60 mg PO DAILY Sennosides [Senna] Med 01/20/19 12:33 Active 8.6 mg PO BID PRN Simvastatin [Zocor] Med 01/21/19 09:00 Active 10 mg PO DAILY Tamsulosin [Flomax] Med 01/21/19 09:00 Active 0.4 mg PO DAILY ceFAZolin [Ancef] 2 gm Med 01/20/19 19:00 Active Premix Bag 1 bag IV Q8H Antiembolic Hose [OM.PC] Per Unit Routine Oth 01/20/19 12:35 Ordered Ice Therapy [OM.PC] Per Unit Routine Oth 01/20/19 12:34 Ordered Sequential Compression Device [OM.PC] Per Unit Routine Oth 01/20/19 12:33 Ordered Resuscitation Status Routine Resus Stat 01/20/19 12:33 Ordered Medication Orders Aspirin (Ecotrin) 325 mg PO BID [facility] Bisacodyl (Dulcolax) 5 mg PO DAILY PRN PRN Reason: Constipation Cholecalciferol (Vitamin D3) 5,000 unit PO DAILY [facility] Cyclobenzaprine HCl (Flexeril) 10 mg PO TID PRN PRN Reason: Spasms Docusate Sodium (Colace) 100 mg PO BID [facility] Last Admin: 01/20/19 21:13 Dose: 100 mg Finasteride (Proscar) 5 mg PO DAILY [facility] Flunisolide (Nasalide Nasal [place]) 0 ml AYAZ BID [facility] Last Admin: 01/20/19 21:12 Dose: 1 spr Gabapentin (Neurontin) 1,200 mg PO DAILY [facility] Cefazolin Sodium/Dextrose 2 gm (/ Premix) 50 mls @ 100 mls/hr IV Q8H [facility] Stop: 01/21/19 11:29 Last Admin: 01/21/19 04:00 Dose: 100 mls/hr Infusion: 01/20/19 18:39 Dose: 100 mls/hr Admin: 01/20/19 18:09 Dose: 100 mls/hr Ketorolac Tromethamine (Toradol) 15 mg IVPUSH Q6H PRN PRN Reason: Pain Last Admin: 01/20/19 23:48 Dose: 15 mg Admin: 01/20/19 17:23 Dose: 15 mg Loratadine (Claritin) 10 mg PO DAILY [facility] Magnesium Hydroxide (Milk Of Magnesia) 30 ml PO BID PRN PRN Reason: Constipation Magnesium Oxide (Magnesium Oxide) 400 mg PO DAILY [facility] Morphine Sulfate (Morphine) 2 mg IVPUSH Q2H PRN PRN Reason: Breakthrough Pain Naloxone HCl (Narcan) 0.1 mg IVPUSH Q5M PRN PRN Reason: Oversedation Ondansetron HCl (Zofran) 4 mg IVPUSH Q6H PRN PRN Reason: Nausea/Vomiting Oxycodone/Acetaminophen (Percocet 325-5 Mg) 1 - 2 tab PO Q4H PRN PRN Reason: Pain Last Admin: 01/21/19 04:08 Dose: 2 tab Admin: 01/20/19 22:04 Dose: 2 tab Admin: 01/20/19 18:18 Dose: 1 tab Admin: 01/20/19 17:23 Dose: 1 tab Pantoprazole Sodium (Protonix) 40 mg PO BID [facility] Last Admin: 01/20/19 21:14 Dose: 40 mg Chlorthalidone 25 Mg 0 each PO DAILY [facility] Propranolol HCl (Inderal La) 60 mg PO DAILY [facility] Senna (Senna) 8.6 mg PO BID PRN PRN Reason: Constipation Simvastatin (Zocor) 10 mg PO DAILY [facility] Tamsulosin HCl (Flomax) 0.4 mg PO DAILY [facility] - Assessment Assessment (Free Text/Narrative):: POD#1 - right TKA - Plan Plan (Free Text/Narrative):: 1. Hgb 13.7. 2. Hypokalemia being addressed by Hospitalist service. 3. 325mg ASA PO BID. Frequent mobility, TEDs. 4. Discharge to home today if cleared by Hospitalist service and therapies. The pt's case was discussed with Dr. Freedman.
[2019-01-21] MEDS: Pantoprazole 40 MG Tab.CR PO SCH (08:19)
[2019-01-21] MEDS: Docusate Sodium 100 MG Cap PO SCH (08:19)
[2019-01-21] MEDS: Ketorolac 15 MG/ML SDV IVPUSH PRN (08:20)
--- NOTE | 2019-01-21 08:57 | PCM48HPAN ---
Post Anesthesia Note - EVALUATION WITHIN 48HRS OF ANESTHETIC Vital Signs in Normal Range: Yes Patient Participated in Evaluation: Yes Respiratory Function Stable: Yes Airway Patent: Yes Cardiovascular Function Stable: Yes Hydration Status Stable: Yes Pain Control Satisfactory: Yes (is complaining of pain.) Nausea and Vomiting Control Satisfactory: Yes Mental Status Recovered: Yes Pulse Rate: 88 Resp Rate: 17 Temperature: 99.3 F Blood Pressure: 122/74
[2019-01-21] MEDS: Potassium Chloride 20 MEQ Tab.ER PO SCH ×2 (08:59→14:08)
[2019-01-21] MEDS ORDERED: Loratadine 10 MG Tab PO SCH (09:00)
[2019-01-21] MEDS ORDERED: Propranolol 60 MG Cap.ER PO SCH (09:00)
[2019-01-21] MEDS ORDERED: Cholecalciferol (Vitamin D3) 5,000 UNIT Tab PO SCH (09:00)
[2019-01-21] MEDS ORDERED: Tamsulosin 0.4 MG Cap.ER PO SCH (09:00)
[2019-01-21] MEDS ORDERED: Aspirin 325 MG Tab.EC PO SCH (09:00)
[2019-01-21] MEDS ORDERED: Magnesium Oxide 400 MG Tab PO SCH (09:00)
[2019-01-21] MEDS ORDERED: Gabapentin 600 MG Tab PO SCH (09:00)
[2019-01-21] MEDS ORDERED: Simvastatin 10 MG Tab PO SCH (09:00)
[2019-01-21] MEDS ORDERED: Finasteride 5 MG Tab PO SCH (09:00)
[2019-01-21] MEDS ORDERED: Magnesium Sulfate/Water 4 GM in Premix Bag 1 BAG IV ONE (09:46)
--- NOTE | 2019-01-21 13:50 | PCM.OPNOTE ---
- General Post-Op/Procedure Note Date of Surgery/Procedure: 01/20/19 Operative Procedure(s): right total knee arthroplasty Pre Op Diagnosis: right knee osteoarthrosis Post-Op Diagnosis: Same Anesthesia Technique: Local, MAC, Spinal Primary Surgeon: Geoff Freedman Anesthesia Provider: Ritika Campbell Configuration Developer: Kathia Ramos Configuration Developer: Kira Khalil EBL in mLs: 500 Complications: None Condition: Good Free Text/Narrative:: Intake & Output 01/20/19 01/21/19 01/21/19 22:59 06:59 14:59 Intake Total 300 1400 540 Output Total 550 Balance 300 850 540 size 7/7 9mm 35x10
--- NOTE | 2019-01-21 14:28 | OR ---
DATE OF OPERATION: 01/20/2019 SURGEON: Geoff Freedman MD OPERATION PERFORMED: Right total knee arthroplasty. PREOPERATIVE DIAGNOSIS: Right knee osteoarthrosis. POSTOPERATIVE DIAGNOSIS: Right knee osteoarthrosis. ANESTHESIA: Local, MAC, spinal primary. ANESTHESIA PROVIDER: Ritika Campbell. ASSISTANTS: Kathia Ramos PA-C and Kira Khalil LPN. ESTIMATED BLOOD LOSS: 500 mL. COMPLICATIONS: None. CONDITION: Stable. IMPLANTS: 1. Whitney size 7 press-fit CR femur. 2. Elm Mott size 7 press-fit tibial base plate. 3. Whitney size 7.9 mm CS polyethylene insert. 4. Whitney size 35 x 10 mm press-fit patella. DESCRIPTION OF PROCEDURE: The patient was identified in the preop holding area. Proper site was marked and identified by the surgeon. The patient was taken back to the operating theater. After adequate anesthesia, the patient's right lower extremity had a nonsterile tourniquet applied and it was sterilely prepped and draped in the usual sterile fashion. OR time-out was performed. The patient received 2 g IV Ancef. At this time, the right lower extremity was exsanguinated. Tourniquet was insufflated to 300 mmHg. Standard medial parapatellar incision was made. Medial parapatellar arthrotomy was created. Deep fibers of the MCL were raised and anterior fat pad was resected. At this time, attention was turned to the patella. Patella measured a 27, it was resected to a 16 for 35 x 10 mm patella. Drill holes were then drilled and found to be in adequate position. The drill was then drilled in the distal femur and the intramedullary distal femoral cutting guide was then placed. 8 mm was resected off the distal femur and was found to be an adequate resection. Sizing guide was placed. It was found to be a size 7 press-fit CR femur that was shown on the implant record at the beginning of this dictation. The drill holes were drilled for the epicondylar axis using Whitesides line and epicondyles as reference. At this time, the 4-in - 1 cutting block was placed. An anterior posterior and anterior and posterior chamfer cuts were then completed. Attention was turned to the tibia. The posterior medial lateral retractors were placed. The extramedullary tibial guide was placed. It was placed in the old footprint of the ACL. It was aligned with the center of the ankle and 0 degrees of slope, 9 mm was then resected off the unaffected side. There was found to be an acceptable reduction. At this time, posterior osteophytes were removed along with medial and lateral meniscus. A trial implant was placed with a correct sized tibia that was mentioned at the beginning of the dictation. A Elm Mott size 7.9 mm CS polyethylene insert was then placed. The patient's knee was brought through range of motion. The patella was tracking centrally and was stable to varus and valgus stress. Alignment was found to be roughly at 0 degrees. The tibia was stamped and drilled in proper rotation. The universal tibial base plate was impacted in place. Next, the Elm Mott size 7 press-fit CR femur impacted into place and the Whitney size 7.9 mm CS polyethylene insert was placed. The patient's knee was brought into full extension. The patella was then press-fit in place at this time. Tourniquet was deflated. One liter dilute Betadine solution was irrigated through the knee along with 3 L of pulse lavage irrigation with Ancef. Periarticular injection was then completed. The patient's knee was brought through a range of motion. Knee was found to be stable to varus valgus stress, the patella was tracking centrally with full range of motion. At this time, a #2 barbed suture was used for closure of the medial parapatellar arthrotomy. Topical tranexamic acid was placed. 2-0 Vicryl was used subcutaneously, Prineo was used for the skin. The patient tolerated the procedure well and was sent to the PACU in stable condition. ARABELLA /[id number] BRIANDA
--- NOTE | 2019-01-21 17:50 | PCM.DCSUM1 ---
Discharge Summary - Hospital Course Brief History: Isma is a 58 yo male who underwent right TKA with Dr. Freedman on . The procedure was completed under spinal anesthesia with MAC. The pt tolerated the procedure well and was admitted to the Medical-Surgical Unit. Medical management was provided by the Hospitalist service. The pt's Hospital was remarkable for hypokalemia which was mild and potassium IV was provided. The pt's Hgb on POD#1 was 13.7. On POD#1, 325mg ASA BID was initiated for VTE prophylaxis. SCDs and TEDs were also ordered. A Mepilex dressing was placed at the incision site at the time of surgery and remained clean and dry. The pt participated in P.T. and O.T. and progressed well. The pt was allowed to WBAT. On POD#1, the pt was deemed appropriate to discharge to home. - Discharge Data Discharge Date: 01/21/19 Discharge Disposition: Home, Self-Care 01 Condition: Good - Patient Summary/Data Operative Procedure(s) Performed: right total knee arthroplasty Consults: Consultations 01/20/19 12:32 OT Evaluation and Treatment [CONS] Routine PT Evaluation and Treatment [CONS] Routine 01/20/19 12:33 Consult to Physician [CONS] Routine - Patient Instructions Diet: Usual Diet as Tolerated Activity: Apply Ice, As Tolerated, Elevate Extremity, Full Weight Bearing Driving: Do Not Drive Showering/Bathing: May Shower Wound/Incision Care: Keep Operative Site/Wound Site Clean and Dry, Do NOT Change Dressing Notify Provider of: Fever, Increased Pain, Swelling and Redness, Drainage, Nausea and/or Vomiting Other/Special Instructions: Please get up and moving around EVERY HOUR while awake. This helps to prevent blood clots. Please use your walker and have help with mobility as needed. Take a short walk in your home every hour while awake. Please take 325mg Aspirin TWICE daily. The aspirin is being used for blood clot prevention and not for pain management so please do not miss a dose of the medication. You will discontinue use of the 81mg Aspirin daily while using the 325mg Aspirin twice daily. Continue with omeprazole use to protect your stomach while you are using the aspirin. At home, please complete the exercises that you learned during the Hospital stay. Schedule for physical therapy. Use the pain medication as needed. The medication may cause drowsiness and constipation. Contact your primary care provider for instructions if you are constipated. You may use a stool softener like docusate sodium or Colace 100mg twice daily and/or a laxative like Miralax daily for constipation. Increase your water and fiber intake while you are using the pain medication. Discontinue use of the pain medication as soon as able. Please do not use other medications that may cause drowsiness (other pain medications, anxiety pills, cold medications, sleeping pills, etc) while using the prescription pain medication. Do not use alcohol while using the pain medication. Wear the GURDEEP hose during the day and you may remove these at night. Elevate the limb to decrease swelling. Place ice to the area often. Place a towel between your skin and the blue pad. Use the incentive spirometer often. Take deep breaths throughout the day. Please keep the dressing in place until follow-up. Notify the Clinic if the dressing becomes saturated. Increase your protein intake while you are healing. If you have diabetes, please closely monitor your blood sugars and notify your primary care provider with abnormal values. Elevated blood sugars increases the risk of infection. Call the Clinic with questions or concerns - [phone]. Follow-up with PCP within 7-10 days regarding low potassium and magenesium. - Discharge Plan *PRESCRIPTION DRUG MONITORING PROGRAM REVIEWED*: No *COPY OF PRESCRIPTION DRUG MONITORING REPORT IN PATIENT JACKLYN: No Prescriptions/Med Rec: Acetaminophen/oxyCODONE [Percocet 325-5 MG] 1 - 2 tab PO Q6H PRN #60 tablet PRN Reason: Pain Aspirin [Ecotrin] 325 mg PO BID #84 tab.ec Magnesium Oxide [Magnesium] 400 mg PO DAILY #5 capsule Potassium Chloride [Klor-Con M20] 20 meq PO BIDAC #8 tab.er Home Medications: Home Meds Acetaminophen [Tylenol] 650 mg PO TID PRN 01/20/19 [History] Acetaminophen/oxyCODONE [Percocet 325-5 MG] 1 - 2 tab PO Q6H PRN #60 tablet 03/07 [Rx] Aspirin [Ecotrin] 325 mg PO BID #84 tab.ec 01/20/19 [Rx] Baclofen 10 mg PO TID PRN 01/20/19 [History] Bisacodyl [Dulcolax] 5 mg PO DAILY PRN tablet 01/20/19 [Rx] Cetirizine [ZyrTEC] 10 mg PO DAILY 01/20/19 [History] Chlorthalidone 25 mg PO DAILY 01/20/19 [History] Cholecalciferol (Vitamin D3) [Vitamin D3] 5,000 unit PO DAILY 01/20/19 [History] Docusate Sodium [Colace] 100 mg PO BID cap 01/20/19 [Rx] Finasteride 5 mg PO DAILY 01/20/19 [History] Fluticasone Propionate [Flovent] 2 spray NASBOTH DAILY 01/20/19 [History] Gabapentin [Neurontin] 1,200 mg PO DAILY 01/20/19 [History] Gluc HCl/Csa/Juan Hy/Hyalur Ac [Glucosamine Chondroitin] 1 cap PO BID 01/20/19 [ History] Magnesium 250 mg PO DAILY 01/20/19 [History] Magnesium Hydroxide [Milk of Magnesia] 30 ml PO BID PRN cup 01/20/19 [Rx] Omeprazole Magnesium 20 mg PO BID 01/20/19 [History] Propranolol [Inderal LA] 60 mg PO DAILY 01/20/19 [History] Sennosides [Senna] 8.6 mg PO BID PRN tablet 01/20/19 [Rx] Tamsulosin HCl 0.4 mg PO DAILY 01/20/19 [History] atorvaSTATin [Lipitor] 10 mg PO BEDTIME 01/20/19 [History] Magnesium Oxide [Magnesium] 400 mg PO DAILY #5 capsule 01/21/19 [Rx] Potassium Chloride [Klor-Con M20] 20 meq PO BIDAC #8 tab.er 01/21/19 [Rx] Patient Handouts: Steps to Quit Smoking, [id number], Total Knee Replacement, Care After, Surgical Site Infections FAQs - CERDA Referrals: Bebeto Reed MD [Ordering Only Provider] - 01/27/19 12:30 pm (Please check in at 12:30pm (central time).) Kathia Ramos PA-C [Physician Desizing Pad Operator] - (1. Follow-up with Kathia Ramos PA-C on Monday January 28, 2019 at 10:15am. 2. Follow-up with Kathia Ramos PA-C on Monday February 04, 2019 at 10:15am.) - Discharge Summary/Plan Comment DC Time >30 min.: No - Patient Data Vitals - Most Recent: Last Vital Signs Temp 99.3 F 01/21/19 08:57 Pulse 88 01/21/19 08:57 Resp 17 01/21/19 08:57 BP 122/74 01/21/19 08:57 Pulse Ox 98 01/21/19 08:30 Weight - Most Recent: 217 lb 4.8 oz I&O - Last 24 hours: Intake & Output 01/21/19 01/21/19 01/21/19 06:59 14:59 22:59 Intake Total 1400 780 Output Total 550 Balance 850 780 Lab Results - Last 24 hrs: Laboratory Results - last 24 hr 01/21/19 01/21/19 01/21/19 Range/Units 04:18 04:18 04:18 WBC 9.35 H (4.23-9.07) K/mm3 RBC 4.18 L (4.63-6.08) M/mm3 Hgb 13.7 (13.7-17.5) gm/L Hct 39.2 L (40.1-51.0) % MCV 93.8 H (79.0-92.2) fl MCH 32.8 H (25.7-32.2) pg MCHC 34.9 (32.2-35.5) g/dl RDW Std Deviation 43.6 (35.1-43.9) fL Plt Count 274 (163-337) K/mm3 MPV 8.7 L (9.4-12.3) fl Sodium 133 L (136-145) mEq/L Potassium 2.7 L (3.5-5.1) mEq/L Chloride 96 L (98-107) mEq/L Carbon Dioxide 29 (21-32) mEq/L Anion Gap 10.7 (5-15) BUN 15 (7-18) mg/dL Creatinine 0.8 (0.7-1.3) mg/dL Est Cr Clr Drug Dosing 101.39 mL/min Estimated GFR (MDRD) > 60 (>60) mL/min BUN/Creatinine Ratio 18.8 H (14-18) Glucose 94 (74-106) mg/dL Calcium 8.8 (8.5-10.1) mg/dL Magnesium 1.5 L (1.8-2.4) mg/dl Total Bilirubin 0.8 (0.2-1.0) mg/dL AST 16 (15-37) U/L ALT 20 (16-63) U/L Alkaline Phosphatase 65 (46-116) U/L C-Reactive Protein 3.7 H* (<1.0) mg/dL Total Protein 6.3 L (6.4-8.2) g/dl Albumin 3.2 L (3.4-5.0) g/dl Globulin 3.1 gm/dL Albumin/Globulin Ratio 1.0 (1-2) 01/21/19 Range/Units 07:52 WBC (4.23-9.07) K/mm3 RBC (4.63-6.08) M/mm3 Hgb (13.7-17.5) gm/L Hct (40.1-51.0) % MCV (79.0-92.2) fl MCH (25.7-32.2) pg MCHC (32.2-35.5) g/dl RDW Std Deviation (35.1-43.9) fL Plt Count (163-337) K/mm3 MPV (9.4-12.3) fl Sodium (136-145) mEq/L Potassium 2.8 L (3.5-5.1) mEq/L Chloride (98-107) mEq/L Carbon Dioxide (21-32) mEq/L Anion Gap (5-15) BUN (7-18) mg/dL Creatinine (0.7-1.3) mg/dL Est Cr Clr Drug Dosing mL/min Estimated GFR (MDRD) (>60) mL/min BUN/Creatinine Ratio (14-18) Glucose (74-106) mg/dL Calcium (8.5-10.1) mg/dL Magnesium (1.8-2.4) mg/dl Total Bilirubin (0.2-1.0) mg/dL AST (15-37) U/L ALT (16-63) U/L Alkaline Phosphatase (46-116) U/L C-Reactive Protein (<1.0) mg/dL Total Protein (6.4-8.2) g/dl Albumin (3.4-5.0) g/dl Globulin gm/dL Albumin/Globulin Ratio (1-2) Med Orders - Current: Current Medications Discontinued Medications Acetaminophen (Tylenol) 975 mg PO ONETIME MARCUS Stop: 01/20/19 14:00 Last Admin: 01/20/19 09:54 Dose: 975 mg Aspirin (Ecotrin) 325 mg PO BID [facility] Last Admin: 01/21/19 08:20 Dose: 325 mg Bisacodyl (Dulcolax) 5 mg PO DAILY PRN PRN Reason: Constipation Bupivacaine HCl (Marcaine 0.25%) Confirm Administered Dose 30 ml .ROUTE .STK- MED ONE Stop: 01/20/19 11:28 Last Admin: 01/20/19 13:31 Dose: 30 ml Bupivacaine HCl (Sensorcaine-Mpf 0.75%) Confirm Administered Dose 30 ml .ROUTE .STK-MED ONE Stop: 01/20/19 12:05 Cefazolin Sodium (Ancef) Confirm Administered Dose 2 gm .ROUTE .STK-MED ONE Stop: 01/20/19 11:28 Last Admin: 01/20/19 13:23 Dose: 2 gm Cefazolin Sodium (Ancef) Confirm Administered Dose 2 gm .ROUTE .STK-MED ONE Stop: 01/20/19 12:53 Cholecalciferol (Vitamin D3) 5,000 unit PO DAILY [facility] Last Admin: 01/21/19 08:20 Dose: 5,000 unit Morphine Sulfate 8 mg/Epinephrine HCl 0.3 mg/Cefuroxime Sodium 750 mg/Ketorolac Tromethamine 30 mg/Sodium Chloride 27.9 ml 0 mg .XX ONETIME ONE Stop: 01/20/19 09:01 Last Admin: 01/20/19 13:30 Dose: 788.3 mg Cyclobenzaprine HCl (Flexeril) 10 mg PO TID PRN PRN Reason: Spasms Docusate Sodium (Colace) 100 mg PO BID [facility] Last Admin: 01/21/19 08:19 Dose: 100 mg Ephedrine Sulfate (Ephedrine In Ns) Confirm Administered Dose 50 mg .ROUTE .STK- MED ONE Stop: 01/20/19 13:32 Epinephrine HCl (Adrenalin) Confirm Administered Dose 1 mg .ROUTE .STK-MED ONE Stop: 01/20/19 08:58 Famotidine (Pepcid) 20 mg PO Q12H [facility] Fentanyl (Sublimaze) 50 mcg IVPUSH Q5M PRN PRN Reason: Pain Stop: 01/20/19 18:00 Finasteride (Proscar) 5 mg PO DAILY [facility] Last Admin: 01/21/19 08:19 Dose: 5 mg Flunisolide (Nasalide Nasal [place]) 0 ml AYAZ BID [facility] Last Admin: 01/21/19 08:18 Dose: 2 spr Gabapentin (Neurontin) 1,200 mg PO DAILY [facility] Last Admin: 01/21/19 08:19 Dose: 1,200 mg Lactated Ringer's (Ringers, Lactated) 1,000 mls @ 125 mls/hr IV ASDIRECTED [facility] Stop: 01/20/19 23:00 Last Admin: 01/20/19 10:05 Dose: 125 mls/hr Lidocaine HCl (Xylocaine-Mpf 1%) Confirm Administered Dose 5 mls @ as directed .ROUTE .STK-MED ONE Stop: 01/20/19 12:05 Lidocaine HCl (Xylocaine-Mpf 1%) Confirm Administered Dose 5 mls @ as directed .ROUTE .STK-MED ONE Stop: 01/20/19 12:05 Cefazolin Sodium/Dextrose 2 gm (/ Premix) 50 mls @ 100 mls/hr IV Q8H [facility] Stop: 01/21/19 11:29 Last Admin: 01/21/19 10:43 Dose: 100 mls/hr Lactated Ringer's (Ringers, Lactated) Confirm Administered Dose 1,000 mls @ as directed .ROUTE .STK-MED ONE Stop: 01/20/19 13:08 Magnesium Sulfate 4 gm/ Premix 100 mls @ 25 mls/hr IV ONETIME ONE Stop: 01/21/19 09:47 Last Admin: 01/21/19 10:42 Dose: 25 mls/hr Iodine (Iodine 2% Mild Tincture) Confirm Administered Dose 30 ml .ROUTE .STK- MED ONE Stop: 01/20/19 11:28 Last Admin: 01/20/19 13:21 Dose: 18 ml Ketorolac Tromethamine (Toradol) 15 mg IVPUSH Q6H PRN PRN Reason: Pain Last Admin: 01/21/19 08:20 Dose: 15 mg Lidocaine HCl (Xylocaine-Mpf 1%) Confirm Administered Dose 6 ml .ROUTE .STK-MED ONE Stop: 01/20/19 12:38 Lidocaine/Sodium Bicarbonate (Buffered Lidocaine 1% In Ns 8.4%) 0.25 ml IDERM ONETIME PRN PRN Reason: Prior to IV Start Stop: 01/20/19 18:00 Last Admin: 01/20/19 10:05 Dose: 0.25 ml Loratadine (Claritin) 10 mg PO DAILY [facility] Last Admin: 01/21/19 08:20 Dose: 10 mg Magnesium Hydroxide (Milk Of Magnesia) 30 ml PO BID PRN PRN Reason: Constipation Magnesium Oxide (Magnesium Oxide) 400 mg PO DAILY [facility] Last Admin: 01/21/19 08:19 Dose: 400 mg Midazolam HCl (Versed 1 Mg/Ml) Confirm Administered Dose 2 mg .ROUTE .STK-MED ONE Stop: 01/20/19 12:04 Morphine Sulfate (Morphine) 2 mg IVPUSH Q2H PRN PRN Reason: Breakthrough Pain Naloxone HCl (Narcan) 0.1 mg IVPUSH Q5M PRN PRN Reason: Oversedation Ondansetron HCl (Zofran) Confirm Administered Dose 4 mg .ROUTE .STK-MED [facility] Stop: 01/20/19 12:32 Ondansetron HCl (Zofran) 4 mg IVPUSH Q6H PRN PRN Reason: Nausea/Vomiting Ondansetron HCl (Zofran) 4 mg IVPUSH ONETIME PRN PRN Reason: Nausea/Vomiting Stop: 01/20/19 18:00 Oxycodone HCl (Oxycontin) 10 mg PO ONETIME [facility] Stop: 01/20/19 14:00 Last Admin: 01/20/19 09:54 Dose: 10 mg Oxycodone/Acetaminophen (Percocet 325-5 Mg) 1 - 2 tab PO Q4H PRN PRN Reason: Pain Last Admin: 01/21/19 14:39 Dose: 2 tab Pantoprazole Sodium (Protonix) 40 mg PO BID [facility] Last Admin: 01/21/19 08:19 Dose: 40 mg Chlorthalidone 25 Mg 0 each PO DAILY [facility] Last Admin: 01/21/19 09:01 Dose: Not Given Potassium Chloride (Klor-Con M20) 60 meq PO Q4H [facility] Stop: 01/21/19 13:01 Last Admin: 01/21/19 14:08 Dose: 60 meq Pregabalin (Lyrica) 50 mg PO ONETIME [facility] Stop: 01/20/19 14:00 Last Admin: 01/20/19 09:54 Dose: 50 mg Propofol (Diprivan 20 Ml) Confirm Administered Dose 400 mg .ROUTE .STK-MED ONE Stop: 01/20/19 12:36 Propranolol HCl (Inderal La) 60 mg PO DAILY [facility] Last Admin: 01/21/19 08:19 Dose: 60 mg Ropivacaine (Naropin 0.5%) Confirm Administered Dose 30 ml .ROUTE .STK-MED ONE Stop: 01/20/19 08:58 Senna (Senna) 8.6 mg PO BID PRN PRN Reason: Constipation Simvastatin (Zocor) 10 mg PO DAILY [facility] Last Admin: 01/21/19 08:19 Dose: 10 mg Sodium Chloride (Saline Flush) 10 ml FLUSH ASDIRECTED PRN PRN Reason: Keep Vein Open Stop: 01/20/19 18:00 Tamsulosin HCl (Flomax) 0.4 mg PO DAILY [facility] Last Admin: 01/21/19 08:19 Dose: 0.4 mg Tranexamic Acid (Cyklokapron) Confirm Administered Dose 1,000 mg .ROUTE .STK- MED ONE Stop: 01/20/19 11:27 Last Admin: 01/20/19 13:37 Dose: 1,000 mg Vancomycin HCl (Vancomycin) Confirm Administered Dose 1 gm .ROUTE .STK-MED ONE Stop: 01/20/19 11:27 Last Admin: 01/20/19 13:33 Dose: 1 gm
== END 2019-01-21 15:10 | disposition home or self-care (01) | DRG 470 ==
LOC: JD.SDS 09:35 → JD.MS 09:40 → JD.SDS 12:32 → JD.MS 12:33
PROVIDERS: ADMIT Orthopaedic Surgery; ATTEND Orthopaedic Surgery
PROC: 0SRC0JA Replacement of Right Knee Joint with Synthetic Substitute, Uncemented, Open Approach (ICD-10-PCS; principal; 2019-01-20)
PROC: 3E0T3BZ Introduction of Anesthetic Agent into Peripheral Nerves and Plexi, Percutaneous Approach (ICD-10-PCS; 2019-01-20)
DX: M17.11 Unilateral primary osteoarthritis, right knee (principal); E87.6 Hypokalemia; I10 Essential (primary) hypertension; N40.0 Benign prostatic hyperplasia without lower urinary tract symptoms; K21.9 Gastro-esophageal reflux disease without esophagitis; E83.42 Hypomagnesemia; G89.18 Other acute postprocedural pain; M54.9 Dorsalgia, unspecified; G89.29 Other chronic pain; M25.761 Osteophyte, right knee; G25.0 Essential tremor; Z98.1 Arthrodesis status; Z79.82 Long term (current) use of aspirin; Z96.652 Presence of left artificial knee joint; Z79.899 Other long term (current) drug therapy
CPT/HCPCS: 01402; 36415; 64450; 73560-26-RT; 73560-RT; 80053; 83735; 84132; 85027; 85730; 86140; 97110-GP; 97116-GP; 97161-GP; 97165-GO; 97535-GO; A9270-GY; C1776; J0171; J0690; J0697; J1885; J2001; J2250; J2270; J2405; J2704; J2795; J3370; J3475; J3490; J7050; J7120